=== PATIENT | female | born 1970 | race Caucasian/White ===

== ENCOUNTER → 2020-11-16 01:15 | Outpatient (CLI) | payer OTHER, SELFPAY ==
[2020-11-16 19:15] LABS: SARS-CoV-2 RNA PCR Negative
== END ==
PROVIDERS: Visit Provider Surgery
DX: Z01.812 Encounter for preprocedural laboratory examination (principal); Z20.822 Contact with and (suspected) exposure to COVID-19
CPT/HCPCS: C9803; U0003; U0005

== ENCOUNTER 2020-11-19 01:03 | Day surgery (SDC) | payer OTHER, SELFPAY ==
[2020-11-05 15:30] VITALS: BMI 33.8
--- NOTE | 2020-11-18 11:32 | WPDANESEPPF ---
Anes - Initial Pre Proc Eval Procedure: Operation Date: 11/19/20 09:30 Proposed Procedures p Screening Colonoscopy - Apollo Toribio DO Date/Time: 11/18/20 11:32 Surgeon: Apollo Toribio DO Pre Op Diagnosis: Neoplasm screening Patient Data Age: 50 Gender: F Height: 1.57 m Weight: 84 kg Allergies Allergy/AdvReac Type Severity Reaction Status Date / Time No Known Allergies Allergy Unknown Unverified 11/05/20 15:23 Home Medications Medication Instructions Recorded Confirmed Type azelastine 1 spray INTRANASAL BID 11/05/20 11/05/20 History celecoxib 200 mg PO DAILY 11/05/20 11/05/20 History fluoxetine 20 mg PO DIRECTED 11/05/20 11/05/20 History hydrochlorothiazide 25 mg PO DAILY 11/05/20 11/05/20 History fzxnh-mo9-nra-feu-st2-xco-astx 1 cap PO DAILY 11/05/20 11/05/20 History [Krill Oil ([place] 3 and 6)] lisinopril 10 mg PO DAILY 11/05/20 11/05/20 History multivitamin [Multi-Daily] 1 tablet PO DAILY 11/05/20 11/05/20 History rosuvastatin [Crestor] 40 mg PO DAILY 11/05/20 11/05/20 History Patient hx anesthesia problems: none Family hx anesthesia problems: none [facility] Past Medical History Medical History (Updated 11/18/20 @ 11:33 by Brandon Pride DO) Fibroid Hyperlipidemia Hypertension Migraine Social History Social History Smoking status: Never smoker Alcohol intake: current Drinks per week: 10 Substance use: never Substance use type: does not use Living arrangements: with family Spiritual care concerns: No Anes - Eval Final PreProcedure Day of Procedure 11/18/20 11:32 Patient weight: obese Heart: regular rate and rhythm Lungs: clear to auscultation and normal air movement Airway: Mallampati scale class II Neurological: alert and oriented Last oral intake: >/= 8 hours ASA classification: III Emergent: no Anesthetic plan: proceed Anesthesia type and monitoring: general GIVS and standard monitoring Informed Consent: The patient's anesthetic plan and its attendant risks and benefits were discussed with the patient/family/POA. Questions were solicited and answers provided to the satisfaction of the patient/family/POA.
[2020-11-19 08:22] VITALS: BP 124/80; PULSE 74; RESP 18; TEMP 36.2; O2SAT 99
[2020-11-19] MEDS: LACTATED RINGERS 1,000 ML 150 ML IV CONT (08:28)
--- NOTE | 2020-11-19 09:06 | PM.IMHP ---
H&P: HPI History of Present Illness Date/Time: 11/19/20 09:06 Chief Complaint: screening for colorectal cancer Narrative: this is a 50-year-old woman who presents for her 1st colonoscopy. She denies any hematochezia or melena. She denies any family history of colon cancer. Review of Systems Review of Systems: All systems reviewed & are unremarkable except as noted in HPI and below Constitutional: Constitutional: Denies chills, Denies fever(s), Denies headache(s) and Denies weight loss Eyes: Eyes: Denies change in vision ENT: Denies dizziness, Denies headache(s), Denies neck mass and Denies throat swelling Cardiovascular: Cardiovascular: Denies chest pain, Denies lightheadedness and Denies dyspnea Respiratory: Respiratory: Denies cough, Denies dyspnea and Denies wheezing Gastrointestinal: Gastrointestinal: Denies abdominal pain, Denies change in bowel habits, Denies nausea and Denies vomiting Genitourinary: Genitourinary: Denies hematuria and Denies dysuria Musculoskeletal: Musculoskeletal: Reports as per HPI Integumentary/Breasts: Skin/Breast: Reports as per HPI Neurologic: Denies dizziness and Denies headache(s) Allergic/Immunologic: Allergic/Immunologic: Denies throat swelling and Denies wheezing PMF Past Medical History Medical History Fibroid Hyperlipidemia Hypertension Migraine Social History Social History Smoking status: Never smoker Alcohol intake: current Drinks per week: 10 Substance use: never Substance use type: does not use Living arrangements: with family Spiritual care concerns: No Meds Home Medications and Allergies Home Medications Medication Instructions Recorded Confirmed Type azelastine 1 spray INTRANASAL BID 11/05/20 11/05/20 History celecoxib 200 mg PO DAILY 11/05/20 11/05/20 History fluoxetine 20 mg PO DIRECTED 11/05/20 11/05/20 History hydrochlorothiazide 25 mg PO DAILY 11/05/20 11/05/20 History apiud-ih5-iou-cpp-id7-qky-astx 1 cap PO DAILY 11/05/20 11/05/20 History [Krill Oil ([place] 3 and 6)] lisinopril 10 mg PO DAILY 11/05/20 11/05/20 History multivitamin [Multi-Daily] 1 tablet PO DAILY 11/05/20 11/05/20 History rosuvastatin [Crestor] 40 mg PO DAILY 11/05/20 11/05/20 History Allergies Allergy/AdvReac Type Severity Reaction Status Date / Time No Known Allergies Allergy Unknown Unverified 11/05/20 15:23 Vital Signs Vital Signs - 24 hr 11/19/20 08:22 Temperature 36.2 C L Pulse Rate 74 Respiratory Rate 18 Blood Pressure 124/80 Pulse Oximetry 99 Exam Const: General: no acute distress and alert Orientation/consciousness: patient oriented x3 HENMT: Head: normocephalic and atraumatic Ears: hearing grossly normal bilaterally General nose exam: Normal nares present Mouth: Yes Normal oral and palatal mucosa present Eyes: Periorbital: periorbital findings normal Sclera: sclerae normal EOM: EOMs intact bilaterally Neck: Neck: normal visual inspection, no lymphadenopathy and trachea midline Chest: Chest palpation & inspection: normal inspection of the chest Resp: Effort & Inspection: normal respiratory effort Auscultation: clear to auscultation bilaterally Cardio: Jugular venous distension: no JVD Rate: regular rate Rhythm: regular rhythm Heart sounds: S1 normal heart sound present and S2 normal heart sound present Peripheral pulses: Peripheral pulses 2+ throughout GI: Inspection: normal to inspection GI Palp: Yes Soft to palpation, No Tenderness to palpation present (GI), No Guarding due to palpation present (GI) and No Rebound tenderness present Percussion: Yes normal to percussion Auscultation: normal bowel sounds : General: Yes no CVA tenderness Back/Spine/Pelvis: Back: no CVA tenderness Neuro: General: patient oriented x3, no focal motor deficits and CN's II-XI intact bilaterally Cognition (Neuro):
[2020-11-19 10:09] VITALS: BP 103/59; PULSE 67; RESP 19; O2SAT 99
[2020-11-19 10:19] VITALS: BP 121/71; PULSE 63; RESP 23; O2SAT 100
[2020-11-19 10:29] VITALS: BP 112/64; PULSE 61; RESP 24; O2SAT 100
== END 2020-11-19 10:37 | disposition home or self-care (01) ==
PROVIDERS: PCP Family Medicine; Visit Provider Surgery
PROC: 0DJD8ZZ Inspection of Lower Intestinal Tract, Via Natural or Artificial Opening Endoscopic (ICD-10-PCS; CPT 45378; principal; 2020-11-19 09:30)
DX: Z12.11 Encounter for screening for malignant neoplasm of colon (principal); I10 Essential (primary) hypertension; E78.5 Hyperlipidemia, unspecified; E66.9 Obesity, unspecified; Z68.33 Body mass index [BMI] 33.0-33.9, adult
CPT/HCPCS: 45378; C9803; J2704; J7120; U0003; U0005

== ENCOUNTER 2023-05-10 07:59 | Outpatient (CLI) | payer OTHER, SELFPAY ==
--- NOTE | 2023-05-10 08:17 | ECG_ITS ---
Measurements Intervals [place] Rate: 65 P: 5 AR: 179 QRS: 15 QRSD: 92 T: 19 QT: 365 QTc: 382 Interpretive Statements SINUS RHYTHM NONSPECIFIC T-WAVE ABNORMALITY NO PREVIOUS ECG AVAILABLE FOR COMPARISON Electronically Signed On 05-10-2023 11:21:36 CDT by Kiersten Wheeler M.D.
[2023-05-10 08:40] LABS: Basophils Percent Auto 0.6 % (0.2-1.2); Eosinophils Absolute Auto 0.1 K/mm3 (0-0.3); Eosinophils Percent Auto 1.1 % (0-4.4); Hematocrit 40.3 % (37.0-47.0); Immature Granulocyte Absolute 0.02 K/mm3 (0.00-0.031); Immature Granulocyte Percent A 0.3 % (0-0.5); Lymphocytes Percent Auto 27.3 % (18.3-44.2); Mean Corpuscular HGB Conc 32.3 g/dl (32-36); Mean Corpuscular Hemoglobin 30.2 pg (26-34); Mean Corpuscular Volume 93.5 fl (80-100); Mean Platelet Volume 10.2 fl (7.4-10.4); Monocytes Absolute Auto 0.4 K/mm3 (0.1-0.6); Monocytes Percent Auto 6.5 % (2.6-8.5); Neutrophils Absolute Auto 4.2 K/mm3 (1.3-6.7); Neutrophils Percent Auto 64.2 % (45.5-73.1); Platelet Count Result 230 k/mm3 (150-375); Red Blood Count 4.31 M/mm3 (4.2-5.4); Red Cell Distribution Width 13.2 % (11.5-14.5); White Blood Count 6.6 K/mm3 (4.5-10.0)
[2023-05-10 08:50] LABS: Anion Gap 3 mmol/L (8-16); Blood Urea Nitrogen 23 mg/dL (7-17); Calcium 10.4 mg/dL (8.4-10.2); Carbon Dioxide 31 mmol/L (22-30); Chloride 103 mmol/L (98-107); Estimated Glomerular Filt Rate > 60; Glucose 84 mg/dL (65-110); Potassium 4.3 mmol/L (3.4-5.0); Sodium 137 mmol/L (137-145)
== END 2023-05-10 08:00 | disposition home or self-care (01) ==
LOC: ANHSURGERY 08:04
PROVIDERS: Anesthesiology; PCP Family Medicine; Visit Provider Obstetrics & Gynecology
DX: Z01.818 Encounter for other preprocedural examination (principal); D21.9 Benign neoplasm of connective and other soft tissue, unspecified; R93.1 Abnormal findings on diagnostic imaging of heart and coronary circulation; I10 Essential (primary) hypertension; Z79.899 Other long term (current) drug therapy
CPT/HCPCS: 36415; 80048; 85025; 86850; 86900; 86901; 93005

== ENCOUNTER 2023-05-12 00:46 | Day surgery (SDC) | payer OTHER, SELFPAY ==
[2023-05-03 12:23] VITALS: BMI 33.8
--- NOTE | 2023-05-03 12:28 | PC.NURSE ---
Report to the Outpatient Waiting Room, entrance under the green pavilion located off [facility], at time 11:30 on date 05/12/23. Planned Procedure Time: 1:30. Time changes happen often and if your time is changed the preop area will call you the afternoon before. - You and your visitor will be asked to self-screen and do not enter if you have any COVID symptoms. - A mask is optional within the hospital at this time. Patients may have clear liquids (water, carbonated beverages, clear teas, apple juice) until 3 hours prior to surgery (10:30) with a maximum of 20 ounces. - No food from midnight until time of surgery Take the following medications with a SIP of water the morning of surgery: FLUOXETINE DO NOT STOP ANY OF YOUR OTHER PRESCRIPTION MEDICATIONS PRIOR TO SURGERY ?EXCEPT THE FOLLOWING Medications to discontinue per physician: VITAMINS/SUPPLEMENTS Date to take last dose: 05/08/23 Please no make-up, nail lithuanian, hairspray, perfume, deodorant, or body powder the day of surgery. No jewelry (including any body piercings) or valuables the day of surgery, leave them at home. Please take a shower or bath the night before, or the morning of, surgery with an antibacterial soap. Wear comfortable, loose fitting clothing. - Jewelry must be removed prior to entering the operating room. Rings and piercings that are not removed may be cut off. - The hospital will not accept responsibility for valuables. - Please leave all valuables, including medications, at home the day of surgery. If you are going home after surgery, a licensed route salesman and driver must drive you home. - NO public transportation without another adult if you receive anesthesia. - We recommend that an adult stay with you for 24 hours following discharge. - We also recommend that you do not drive, make important decision, drink alcoholic beverages, or take any drugs that were not prescribed by your health care provider for at least 24 hours after your discharge time. Follow any additional instructions given to you from your surgeon. If you or anyone in your household have experienced Covid symptoms in the past week, please notify your surgeon or the nurse liaison at the phone number below for possible testing. Telephone instructions given to PT - NGOC BHANDARI and asked if any additional questions and then verbalized understanding. Patient advised to call surgeon office or pre surgery nurse liaison [phone] if any additional questions.
--- NOTE | 2023-05-10 12:40 | P.HP_ITS ---
H&P: HPI History of Present Illness Date/Time: 05/10/23 12:40 Chief Complaint: Pelvic pain and bleeding Narrative: This is a 53-year-old female admitted for robotic total vaginal hysterectomy and bilateral salpingo-oophorectomy secondary to uterine fibroids pelvic pain and bleeding. Risks and benefits were reviewed including not exclusive of , aspiration plan, bleeding, transfusion, perforation injury to bowel, bladder, ureters, or other internal organs with need for open laparotomy. She received the ACOG handout entitled hysterectomy as well as an [place] and out. She had all questions answered. She asked to proceed PMFSH Past Medical History Medical History Fibroid Hyperlipidemia Hypertension Migraine Social History Social History Smoking status: Never smoker Alcohol intake: current Drinks per week: 5 Substance use: never Substance use type: does not use Living arrangements: with family Spiritual care concerns: No Meds Home Medications and Allergies Home Medications Medication Instructions Recorded Confirmed Type celecoxib 200 mg capsule 200 mg PO DAILY 11/05/20 05/03/23 History fluoxetine 20 mg tablet 20 mg PO DAILY 11/05/20 05/03/23 History hydrochlorothiazide 25 mg tablet 25 mg PO DAILY 11/05/20 05/03/23 History krill 1 cap PO DAILY 11/05/20 05/03/23 History fbu-ea7-ejf-fcr-ta5-fio-astax 1,500 mg-165 mg-67.5 mg capsule (Krill Oil ([place] 3 and 6)) lisinopril 10 mg tablet 10 mg PO DAILY 11/05/20 05/03/23 History multivitamin 1 tablet PO DAILY 11/05/20 05/03/23 History rosuvastatin 40 mg tablet (Crestor) 40 mg PO DAILY 11/05/20 05/03/23 History B complex 11-folic acid 1 mg-C 100 1 tablet PO DAILY 05/03/23 05/03/23 History mg-biotin 300 mcg-zinc 50 mg tablet biotin 10,000 mcg capsule 10,000 mcg PO DAILY 05/03/23 05/03/23 History Allergies Allergy/AdvReac Type Severity Reaction Status Date / Time No Known Allergies Allergy Unknown Unverified 05/03/23 12:20 Exam Const: General: cooperative, healthy appearing and comfortable Nutritional Appearance: overweight Orientation/consciousness: oriented to person, oriented to place and oriented to time HENMT: Head: normal to inspection Resp: Effort & Inspection: normal respiratory effort Cardio: Rate: regular rate Rhythm: regular rhythm Heart sounds: S1 normal heart sound present and S2 normal heart sound present GI: Inspection: normal to inspection and obesity : External Female Exam: normal external appearance Speculum Exam - Vagina: normal appearance of the vagina Speculum Exam - Cervix: normal appearance of the cervix Bimanual exam- vagina & uterus: enlarged and Uterine tenderness Bimanual Exam- Adnexa, other: normal adnexae Assessment and Plan Assessment and plan (1) Pelvic pain: Code(s): R10.2 - Pelvic and perineal pain Status: Acute (2) Vaginal bleeding: Code(s): N93.9 - Abnormal uterine and vaginal bleeding, unspecified Status: Acute (3) Uterine fibroid: Code(s): D25.9 - Leiomyoma of uterus, unspecified Status: Acute Plan Robotic total vaginal hysterectomy bilateral salpingo-oophorectomy
[2023-05-12] VITALS (11 sets, daily range): BP systolic 92–147; BP diastolic 48–85; PULSE 62–98; RESP 13–19; TEMP 36.1–36.7; O2SAT 96–100; BMI 34.4
--- NOTE | 2023-05-12 06:16 | WPDHPUPDATE1 ---
History and Physical Update Update Date/Time: 05/12/23 06:16 History and Physical has been reviewed, including an updated exam of the patient. There are NO changes in the patient's condition. Risks, benefits, and alternatives have been discussed and questions answered. Patient agrees to proceed with procedure.
[2023-05-12] MEDS: LACTATED RINGERS 1,000 ML 30 ML IV CONT ×3 (10:15→14:56)
[2023-05-12] MEDS: KETOROLAC 15 MG/ML VIAL (*BKC) IV PUSH (10:27)
[2023-05-12] MEDS: ACETAMINOPHEN 500 MG TABLET 1000 MG PO (10:27)
--- NOTE | 2023-05-12 10:58 | WPDANESEPPF ---
Anes - Initial Pre Proc Eval Procedure: Operation Date: 05/12/23 11:30 Proposed Procedures p Robotic Assisted Total Vaginal Hysterectomy with Bilateral Salpingo-Oophorectomy - Obi Feliciano MD Date/Time: 05/12/23 10:58 Surgeon: Obi Feliciano MD Pre Op Diagnosis: fibroids,pain,bleeding Patient Data Age: 53 Gender: F Height: 1.57 m Weight: 85.6 kg Last Vital Signs Temp 97.3 F L 05/12/23 09:20 Pulse 73 05/12/23 09:20 Resp 14 05/12/23 09:20 BP 147/85 H 05/12/23 09:20 Pulse Ox 96 05/12/23 09:20 O2 Del Method Room Air 05/12/23 09:20 Allergies Allergy/AdvReac Type Severity Reaction Status Date / Time No Known Allergies Allergy Unknown Verified 05/12/23 10:43 Home Medications Medication Instructions Recorded Confirmed Type celecoxib 200 mg capsule 200 mg PO DAILY 11/05/20 05/03/23 History fluoxetine 20 mg tablet 20 mg PO DAILY 11/05/20 05/12/23 History hydrochlorothiazide 25 mg tablet 25 mg PO DAILY 11/05/20 05/03/23 History krill 1 cap PO DAILY 11/05/20 05/12/23 History csi-oe4-iaq-azi-kn1-sin-astax 1,500 mg-165 mg-67.5 mg capsule (Krill Oil ([place] 3 and 6)) lisinopril 10 mg tablet 10 mg PO DAILY 11/05/20 05/03/23 History multivitamin 1 tablet PO DAILY 11/05/20 05/12/23 History rosuvastatin 40 mg tablet (Crestor) 40 mg PO DAILY 11/05/20 05/03/23 History B complex 11-folic acid 1 mg-C 100 1 tablet PO DAILY 05/03/23 05/12/23 History mg-biotin 300 mcg-zinc 50 mg tablet biotin 10,000 mcg capsule 10,000 mcg PO DAILY 05/03/23 05/12/23 History hydrocodone 5 mg-acetaminophen 325 1 tablet PO Q4H PRN pain #30 tabs 05/12/23 Rx mg tablet Patient hx anesthesia problems: none Family hx anesthesia problems: none Results Review: All pre-operative results and documents have been reviewed as part of the pre-operative evaluation. [facility] Past Medical History Medical History Fibroid Hyperlipidemia Hypertension Migraine Social History Social History Smoking status: Never smoker Alcohol intake: current Drinks per week: 5 Substance use: never Substance use type: does not use Living arrangements: with family Spiritual care concerns: No Anes - Eval Final PreProcedure Day of Procedure 05/12/23 10:58 Patient weight: obese Heart: regular rate and rhythm Lungs: clear to auscultation Airway: Mallampati scale class II Neurological: alert and oriented Last oral intake: >/= 8 hours ASA classification: II Emergent: no Anesthetic plan: proceed Anesthesia type and monitoring: general ETT and standard monitoring Results Review: All pre-operative results and documents have been reviewed as part of the pre-operative evaluation. Informed Consent: The patient's anesthetic plan and its attendant risks and benefits were discussed with the patient/family/POA. Questions were solicited and answers provided to the satisfaction of the patient/family/POA.
[2023-05-12] MEDS: ceFAZolin 2 GM/D5W 50 ML 2 GM/50 ML BAG IVPB (11:04)
--- NOTE | 2023-05-12 13:31 | W.PM.PROC2 ---
Procedure Note - Detailed Date of Procedure 05/12/23 Pre-op Diagnosis fibroids,pain,bleeding Post-op Diagnosis Same Procedure Performed Robotic total vaginal hysterectomy and bilateral salpingo-oophorectomy Surgeon Obi Feliciano MD Anesthesia General Indications This is a 53-year-old female with a markedly enlarged fibroid uterus and bleeding Findings Uterus [id number]. Multiple fibroids were seen. Normal-appearing ovaries and tubes. Description of Procedure Patient was prepped draped in the normal sterile fashion placed in the dorsal lithotomy position. Under excellent general endotracheal anesthesia weighted speculum placed in posterior fornix vagina anterior lip of the cervix grasped with single-tooth tenaculum uterus sounded to 12cm. Serial dilatation with fragmented followed passes the 10. UDAY and the number 3 cold cup. Next the 16 [place] catheter was placed and bladder drained of clear urine. The weighted speculum was removed gloves were changed. Supraumbilical incision made the Veress needle passed in the abdomen. Abdomen filled with CO2 gas to 15. Patient placed in 20? Trendelenburg and right left lateral quadrant incisions made. 8mm trocars advanced under direct visualization assuring no injury. Right upper quadrant incision made and 8 trocar advanced under direct visualization assuring no injury. The robot was docked. Attention was turned to the console. The uterus was noted be large and irregular. The right infundibular pelvics structure was skeletonized clamping burning cutting and bringing this to the round ligament on the right. The round ligament was grasped, burned, next the left infundibulopelvic structure was skeletonized clamping burning cutting and bringing this to level of previous of the cut round ligament. The round ligament there was grasped, burned, cut. Anteriorly a bladder flap was formed. The uterus was large and markedly irregular and difficult to maneuver. A bladder flap was formed and then the cardinal broad ligaments on the left were serially skeletonized clamping burning cutting and hugging the cervix and uterus until a extremely large blood vessels were seen on left. These were clamped, burned, cut. In like fashion the cardinal broad ligaments on the right were skeletonized clamping burning cutting hugging the cervix and uterus until the large vessels could be seen on the right. These were individually clamped, burned, cut. Hemostasis was assured at that point the uterus was cut into several pieces 0 multiple large fibroids and her to removed the uterus through the vagina. Colpotomy incision was then made in the cervix uterus with portions left tube and ovary removed. The portions of fibroids were serially passed through the vagina. Once this was clear the vagina was closed with continuous running 0V lock from lateral edge to edge back to midline. Irrigation subcutaneous layer and the skin closed with 4 Monocryl patient went to recovery in satisfactory condition. All sponge, needle instrument counts were correct. There were no immediate complications Estimated Blood Loss 25 Drains No Packing No Pathology Yes Complications No immediate complications Condition Stable Disposition PACU
--- NOTE | 2023-05-12 13:36 | P.DS_ITS ---
DS: Admitting Diagnosis Discharge Date 05/13/2023 Admitting Diagnosis Uterine fibroids/bleeding refractory to medical therapy DS: Discharge Diagnosis Discharge Diagnosis (1) Uterine fibroid: Code(s): D25.9 - Leiomyoma of uterus, unspecified Status: Acute (2) Vaginal bleeding: Code(s): N93.9 - Abnormal uterine and vaginal bleeding, unspecified Status: Acute (3) Pelvic pain: Code(s): R10.2 - Pelvic and perineal pain Status: Acute DS: Summary Hospital Course Reason for hospitalization: Patient was admitted for robotic hysterectomy and bilateral salpingo- oophorectomy on 05/05 723. Hospital Course: Patient underwent had unremarkable hysterectomy and bilateral salpingo- oophorectomy on 05/12. Her hospital course unremarkable. She remained afebrile. She was up, voiding without difficulty, eating regular diet, ambulating, generally without complaints. Time Spent with Patient Time attestation: Total time spent providing and/or coordinating discharge services: DS: Data Data Completed and Pending Pending studies at discharge: Pending at discharge 05/12/23 13:30 Surgical [PTH] Routine Discharge Plan Discharge Patient Disposition: Home, Self-Care Discharge Instructions: Nothing in the vagina for 6 weeks. Call or return if temperature above 100.4? F, increased abdominal pain, increased vaginal bleeding or any new problems. Patient Instructions: Laparoscopic Hysterectomy (DC), Pain Management After Surgery (DC) Stand Alone Forms: General Discharge Instructions Follow-up/Referrals: Obi Means MD [Physician] - 2 Weeks Discharge Medications: New hydrocodone-acetaminophen 5-325 mg tablet 1 tablet PO Q4H PRN (Reason: pain) Qty: 30 0RF Continued celecoxib 200 mg capsule 200 mg PO DAILY fluoxetine 20 mg tablet 20 mg PO DAILY lisinopril 10 mg Tablet 10 mg PO DAILY hydrochlorothiazide 25 mg Tablet 25 mg PO DAILY multivitamin Tablet 1 tablet PO DAILY rosuvastatin [Crestor] 40 mg Tablet 40 mg PO DAILY Krill Oil ([place] 3 and 6) 1,500-165-67.5 mg Capsule 1 cap PO DAILY biotin 10,000 mcg Capsule 10,000 mcg PO DAILY B complex 83-kzhzd-M-biot-zinc [id number] mo-rp-yhb-mg Tablet 1 tablet PO DAILY Rx Instructions: administer with a meal
[2023-05-12] MEDS: fentaNYL CITRATE INJ (*CRX) 100 MCG/2 ML VIAL 25 MCG IV PUSH (15:16)
--- NOTE | 2023-05-12 15:45 | ADMGEN ---
This patient, Vaishali Gerber, was admitted to OB 2nd Floor Room 286-00. Patient/family oriented to hospital policies and general routines including ID bracelet, bed and alarms, visiting hours, pain management, procedures, bathroom and other care routines, personal items, smoking policy, room service/diet, and visiting hours. Information on how to activate the Rapid Response Team has been discussed. Patient/Family are encouraged to report perceived risks to care and to ask questions if they do not understand what they are told or what they should do.
[2023-05-12] MEDS: DEXTROSE 5%/LACTATED RINGERS 1,000 ML 125 ML IV CONT (16:14)
[2023-05-12] MEDS: KETOROLAC 30 MG/ML VIAL (*BKC) IV PUSH (16:16)
[2023-05-12] MEDS: HYDROcodone/acetaminophen (*CRX) 5-325 MG TABLET 1 TAB PO ×2 (17:39→20:33)
[2023-05-12] MEDS: SIMETHICONE 80 MG TAB.CHEW PO (17:39)
[2023-05-12] MEDS: DOCUSATE SODIUM 100 MG CAPSULE PO (17:39)
[2023-05-13] VITALS: BP 114/68; PULSE 75; RESP 16; TEMP 36.8; O2SAT 97
[2023-05-13] MEDS: DEXTROSE 5%/LACTATED RINGERS 1,000 ML 125 ML IV CONT (00:55)
[2023-05-13 04:52] LABS: Basophils Percent Auto 0.2 % (0.2-1.2); Hematocrit 35.2 % (37.0-47.0); Hemoglobin 11.5 g/dL (12.0-15.0); Immature Granulocyte Absolute 0.04 K/mm3 (0.00-0.031); Immature Granulocyte Percent A 0.4 % (0-0.5); Lymphocytes Absolute Auto 0.79 K/mm3 (0.9-3.2); Lymphocytes Percent Auto 7.3 % (18.3-44.2); Mean Corpuscular HGB Conc 32.7 g/dl (32-36); Mean Corpuscular Hemoglobin 30.3 pg (26-34); Mean Corpuscular Volume 92.9 fl (80-100); Mean Platelet Volume 10.4 fl (7.4-10.4); Monocytes Absolute Auto 0.5 K/mm3 (0.1-0.6); Monocytes Percent Auto 4.9 % (2.6-8.5); Neutrophils Absolute Auto 9.4 K/mm3 (1.3-6.7); Neutrophils Percent Auto 87.2 % (45.5-73.1); Platelet Count Result 206 k/mm3 (150-375); Red Blood Count 3.79 M/mm3 (4.2-5.4); Red Cell Distribution Width 13.3 % (11.5-14.5); White Blood Count 10.8 K/mm3 (4.5-10.0)
[2023-05-13 05:07] VITALS: BP 126/41; PULSE 74; RESP 16; TEMP 36.6; O2SAT 100
--- NOTE | 2023-05-13 07:00 | PC.NURSE ---
PT introductions made and plan of care discussed per post op performance solutions specialist surgery, pain management, daily care activities and pending discharge to home. PT sole recipient of such instructions and no barriers to learning identified at this time. PT received such instructions per one to one discussion, mom baby care guide and demonstrations this shift. PT verbalized understanding of such care.
[2023-05-13] MEDS: IBUPROFEN 600 MG TABLET PO (07:44)
[2023-05-13 07:45] VITALS: BP 139/75; PULSE 71; RESP 18; TEMP 36.8; O2SAT 100
[2023-05-13] MEDS: SIMETHICONE 80 MG TAB.CHEW PO (07:45)
[2023-05-13] MEDS: DOCUSATE SODIUM 100 MG CAPSULE PO (07:45)
[2023-05-13] MEDS: ACETAMINOPHEN 500 MG TABLET 1000 MG (07:46)
[2023-05-13] MEDS: ENOXAPARIN 40 MG/0.4 ML SYRINGE SUB-Q (07:46)
--- NOTE | 2023-05-13 08:54 | PM.GYNPNOP ---
SENIOR IT AUDITOR - A/P Assessment and plan (1) Uterine fibroid: Code(s): D25.9 - Leiomyoma of uterus, unspecified Status: Acute Assessment and Plan: A: POD#1, doing well. P: Home to f/u 2 weeks. (2) Vaginal bleeding: Code(s): N93.9 - Abnormal uterine and vaginal bleeding, unspecified Status: Acute (3) Pelvic pain: Code(s): R10.2 - Pelvic and perineal pain Status: Acute Postoperative Procedures: Procedures Operation Date: 05/12/23 11:30 Actual Procedure Side Surgeon p Robotic Assisted Total Vaginal Hysterectomy with Bilateral Salpingo-Oophorectomy Bilateral Obi Feliciano MD Time Spent With Patient Time: Total time spent is greater than 50% in coordination of care (as documented) at patient's floor/unit and/or counseling patient: Time with patient: less than 15 minutes SENIOR IT AUDITOR- PN:Subj Post-Op Subjective Date/time seen: 05/13/23 08:54 Interval history: Pain OK. Tolerating diet. Voiding. Would like to go home. Exam Narrative: AVSS I/O OK ABD soft, nontender. Incisions c/d/i. EXT nontender SENIOR IT AUDITOR - PN: Obj Data Vital Signs Vital Signs: Vital Signs - 24 hr 05/12/23 09:20 05/12/23 13:54 05/12/23 14:05 Temperature 36.3 C L 36.1 C L Pulse Rate 73 62 71 Respiratory Rate 14 13 14 Blood Pressure 147/85 H 92/52 L 97/61 L Pulse Oximetry 96 97 100 Oxygen Delivery Room Air Simple Face Mask Simple Face Mask Oxygen Flow Rate 8 8 05/12/23 14:20 05/12/23 14:35 05/12/23 14:50 Temperature Pulse Rate 74 67 68 Respiratory Rate 16 18 15 Blood Pressure 96/56 L 101/52 L 97/48 L Pulse Oximetry 100 100 100 Oxygen Delivery Simple Face Mask Room Air Room Air Oxygen Flow Rate 8 05/12/23 15:05 05/12/23 15:20 05/12/23 15:51 Temperature 36.3 C L Pulse Rate 73 98 67 Respiratory Rate 19 16 16 Blood Pressure 100/51 L 103/54 L 103/57 L Pulse Oximetry 100 100 100 Oxygen Delivery Room Air Nasal Cannula Oxygen Flow Rate 2 05/12/23 16:00 05/12/23 20:00 05/13/23 00:00 Temperature 36.7 C 36.8 C Pulse Rate 78 75 Respiratory Rate 16 16 Blood Pressure 108/57 L 114/68 Pulse Oximetry 100 97 97 Oxygen Delivery Nasal Cannula Oxygen Flow Rate 2 05/13/23 00:00 05/13/23 05:07 05/13/23 05:07 Temperature 36.6 C Pulse Rate 74 Respiratory Rate 16 Blood Pressure 126/41 L Pulse Oximetry 97 100 100 Oxygen Delivery Nasal Cannula Room Air Oxygen Flow Rate 2 Intake/Output Intake/Output: Intake & Output 05/10/23 05/11/23 05/12/23 05/13/23 23:59 23:59 23:59 23:59 Intake Total 1140 2000 Output Total 315 360 Balance 825 1640 Meds/Results Medications: Active Medications Generic Name Dose Route Start Last Admin Trade Name Freq PRN Reason Stop Dose Admin Hydrocodone Bitart/Acetaminophen 1 tab 05/12/23 15:35 05/12/23 20:33 Hydrocodone/Acetaminophen (*Crx) 5-325 Mg Tablet PO 1 tab Q3H PRN Administration Pain Rated 5 or Less Hydrocodone Bitart/Acetaminophen 1 tab 05/12/23 15:35 Hydrocodone/Acetaminophen (*Crx) 10-325 Mg Tablet PO Q3H PRN Pain Rated 6 or Greater Docusate Sodium 100 mg 05/12/23 17:00 05/13/23 07:45 Docusate Sodium 100 Mg Capsule PO 100 mg BID MALU Administration Enoxaparin Sodium 40 mg 05/13/23 09:00 05/13/23 07:46 Enoxaparin 40 Mg/0.4 Ml Syringe SUB-Q 40 mg DAILY MALU Administration Dextrose/Lactated Ringer's 1,000 mls @ 125 mls/hr 05/12/23 15:35 05/13/23 00:55 Dextrose 5%/Lactated Ringers IV CONT 125 mls/hr .Q8H MALU Administration Ibuprofen 600 mg 05/12/23 15:35 05/13/23 07:44 Ibuprofen 600 Mg Tablet PO 600 mg Q6H PRN Administration Cramping Ketorolac Tromethamine 30 mg 05/12/23 15:35 05/12/23 16:16 Ketorolac 30 Mg/Ml Vial (*Bkc) IV PUSH 05/17/23 15:34 30 mg Q6H PRN Administration Pain Rated 4-6 Naloxone HCl 0.1 mg 05/12/23 15:35 Naloxone Hcl 0.4 Mg/Ml Vial IV PUSH Q2M PRN Respirator
--- NOTE | 2023-05-13 08:56 | PM.DS ---
DS: Admitting Diagnosis Discharge Date 05/13/23 Admitting Diagnosis Symptomatic fibroid uterus DS: Discharge Diagnosis Discharge Diagnosis (1) Uterine fibroid: Code(s): D25.9 - Leiomyoma of uterus, unspecified Status: Acute (2) Vaginal bleeding: Code(s): N93.9 - Abnormal uterine and vaginal bleeding, unspecified Status: Acute (3) Pelvic pain: Code(s): R10.2 - Pelvic and perineal pain Status: Acute DS: Summary Hospital Course Hospital Course: She was admitted on the date of scheduled surgery. See op note. Did well and was able to go home on POD1. Time Spent with Patient Time attestation: Total time spent providing and/or coordinating discharge services: DS: Data Data Completed and Pending Pending studies at discharge: Pending at discharge 05/12/23 13:30 Surgical [PTH] Routine Labs on day of discharge: Labs from last 24 hours 05/13/23 04:17 WBC 10.8 H RBC 3.79 L Hgb 11.5 L Hct 35.2 L MCV 92.9 MCH 30.3 MCHC 32.7 RDW 13.3 Plt Count 206 MPV 10.4 Immature Gran % (Auto) 0.4 Neut % (Auto) 87.2 H Lymph % (Auto) 7.3 L [place] % (Auto) 4.9 Eos % (Auto) 0.0 Baso % (Auto) 0.2 Lymph # (Auto) 0.79 L [place] # (Auto) 0.5 Eos # (Auto) 0.0 Baso # (Auto) 0.0 Abs Immat Gran (auto) 0.04 H Absolute Neuts (auto) 9.4 H Absolute Nucleated RBC 0.0 Nucleated RBC % 0.0 Discharge Plan Discharge Patient Disposition: Home, Self-Care Discharge Instructions: Nothing in the vagina for 6 weeks. Call or return if temperature above 100.4? F, increased abdominal pain, increased vaginal bleeding or any new problems. Patient Instructions: Laparoscopic Hysterectomy (DC), Pain Management After Surgery (DC) Stand Alone Forms: General Discharge Instructions Follow-up/Referrals: Obi Means MD [Physician] - 2 Weeks Discharge Medications: New hydrocodone-acetaminophen 5-325 mg tablet 1 tablet PO Q4H PRN (Reason: pain) Qty: 30 0RF Continued celecoxib 200 mg capsule 200 mg PO DAILY fluoxetine 20 mg tablet 20 mg PO DAILY lisinopril 10 mg Tablet 10 mg PO DAILY hydrochlorothiazide 25 mg Tablet 25 mg PO DAILY multivitamin Tablet 1 tablet PO DAILY rosuvastatin [Crestor] 40 mg Tablet 40 mg PO DAILY Krill Oil ([place]cam[place] 3 and 6) 1,500-165-67.5 mg Capsule 1 cap PO DAILY biotin 10,000 mcg Capsule 10,000 mcg PO DAILY B complex [id number] [id number]-mg Tablet 1 tablet PO DAILY Rx Instructions: administer with a meal
--- NOTE | 2023-05-13 11:30 | PC.NURSE ---
PT received discharge instructions per protocol and verbalized understanding of such care.
--- NOTE | 2023-05-13 11:45 | PC.NURSE ---
PT discharged to home ambulatory accompanied by spouse and walked to waiting car. Follow up appts confirmed
== END 2023-05-13 11:45 | disposition home or self-care (01) ==
LOC: ANHSURGERY 09:11 → ANHOB2 15:37
PROVIDERS: PCP Family Medicine; Visit Provider Obstetrics & Gynecology
PROC: (CPT 58554; principal; 2023-05-12 11:30)
DX: D25.1 Intramural leiomyoma of uterus (principal); N80.03 Adenomyosis of the uterus; N93.9 Abnormal uterine and vaginal bleeding, unspecified; R10.2 Pelvic and perineal pain; I10 Essential (primary) hypertension; E78.5 Hyperlipidemia, unspecified; E66.9 Obesity, unspecified; Z68.34 Body mass index [BMI] 34.0-34.9, adult
CPT/HCPCS: 58554; S2900; 36415; 80048; 85025; 86850; 86900; 86901; 88307; 93005; 99199; A9270; J0330; J0690; J1100; J1650; J1885; J2250; J2405; J2704; J3010; J7030; J7120; J7121